=== PATIENT | male | born 1945 | race African-American/Black ===

== ENCOUNTER 2016-05-29 12:33 | Day surgery (SDC) | payer OTHER ==
[2016-05-21 08:43] VITALS: BMI 24.0
[~2016-05-29] VITALS: Ht 182.9 cm; Wt 81.8 kg
[~2016-05-29 12:33] MED LIST: ALLO100T PO; ASPI81TA28 PO; CGN1X PO; GLIP-199 PO; LACTATED RINGER'S 1000ML 1,000 ML IV SCH; LOSA50TA6 PO; METF-383 PO; MIRT15TA PO; PRVC/40 PO; TYLOTC500 PO; ZYP20 PO
[2016-05-29 12:57] VITALS: BP 184/96; PULSE 76; TEMP 36.4; O2SAT 96; Ht 182.9 cm; Wt 81.8 kg
[2016-05-29] MEDS ORDERED: MIDAZOLAM HCL 1 MG/ML 2ML VIAL ONE (12:58)
[2016-05-29] MEDS ORDERED: FENTANYL CITRATE INJ 50 MCG/1 ML 2 ML VIAL ONE ×2 (12:58→14:49)
--- NOTE | 2016-05-29 13:40 | Discharge Instructions ---
Discharge Instructions Visit Reason for Visit: Mediastinal Adenopathy Discharge Discharge Diagnosis / Problem: Mediastinal Adenopathy Discharge Goals Goal(s): Learn about illness Activity Recommendations Activity Limitations: resume your previous activity (in 24 hours) Anesthesia . Post Anesthesia Instructions: If you have had General Anesthesia or IV Sedation: * Do not drive today. * Resume driving when surgeon permits. * Do not make important decisions or sign legal documents today. * Call surgeon for: 1. Temperature elevations greater than 101 degrees F. 2. Uncontrollable pain. 3. Excessive bleeding. 4. Persistent nausea and vomiting. 5. Medication intolerance (nausea, vomiting or rash). * For nausea and vomiting use only clear liquids such as: tea, soda, bouillon until nausea subsides, then gradually increase diet as tolerated. * If you have any concerns or questions, call your surgeon's office. If physician is unavailable and it is an emergency, call 911 or go to the nearest emergency room. . Instructions / Follow-Up Instructions / Follow-Up 1. You will need a 1-2 week follow-up appointment with Dr. Long. His office will call correctional facility to arrange date and time of appointment. 2. Call physician if an excessive amount of swelling is noted near incision or if patient has the inability to swallow. Diet Recommendations Recommended Home Diet: resume previous diet Procedures Procedures Performed: Mediastinoscopy Pending Studies Studies pending at discharge: no Medical Emergencies . Who to Call and When: Medical Emergencies: If at any time you feel your situation is an emergency, please call 911 immediately. . Non-Emergent Contact Non-Emergency issues call your: Surgeon Call Non-Emergent contact if: you have a fever, your pain is not controlled, wound has increased drainage . . "Provider Documentation" section prepared by Simeon Kang.
--- NOTE | 2016-05-29 13:44 | History & Physical Bridge Note ---
H&P Re-Evaluation Bridge Note: I have examined the patient, reviewed the History & Physical and in the interval since the performance of the History & Physical I have noted the following changes of clinical significance: No changes noted
[2016-05-29] MEDS ORDERED: PROPOFOL IV EMULSION 10 MG/ML 20 ML VIAL IV ONE (14:49)
[2016-05-29] MEDS ORDERED: LIDOCAINE HCL 2% 2 ML VIAL (20MG/ML) ONE (14:49)
[2016-05-29] MEDS ORDERED: LARYING-O-JET KIT (LTA) EXT ONE ×2 (14:49)
[2016-05-29] MEDS ORDERED: CISATRACURIUM BESYLATE IV SOLN 2 MG/ML 10 ML VIAL ONE (14:50)
[2016-05-29] MEDS ORDERED: EpHEDrine SULFATE 50MG/5ML SYR ONE (14:50)
[2016-05-29] MEDS ORDERED: SUCCINYLCHOLINE CHLORIDE 20 MG/ML 10 ML VIAL IV ONE (14:50)
[2016-05-29] MEDS ORDERED: CLINDAMYCIN PHOS 150 MG/ML 2 ML VIAL ONE ×2 (14:52→15:14)
[2016-05-29] MEDS ORDERED: ESMOLOL HCL 10 MG/ML 10 ML VIAL ONE (15:02)
[2016-05-29] MEDS ORDERED: GLYCOPYRROLATE INJ 0.2 MG/ML VIAL ONE (15:16)
[2016-05-29] MEDS ORDERED: NEOSTIGMINE METHYLSULFATE 5 MG/5 ML SYR ONE (15:16)
[2016-05-29] MEDS ORDERED: TRAM-10 PO (15:30)
--- NOTE | 2016-05-29 16:27 | DIAGNOSTIC IMAGING REPORT ---
CHEST ONE VIEW PORTABLE CLINICAL HISTORY: s/p mediastinoscopy postoperative evaluation COMPARISON STUDY: 03/11/2016 FINDINGS: Lungs are clear. No evidence of pneumothorax. Diaphragms smooth. IMPRESSION: No acute process. No evidence pneumothorax. Electronically signed by: Rio Arevalo M.D. 05/29/2016 4:25 PM Dictated Date/Time: 05/29/2016 4:25 PM
--- NOTE | 2016-05-29 16:32 | OPERATIVE REPORT ---
DATE OF OPERATION: 05/29/2016 PREOPERATIVE DIAGNOSIS: Mediastinal adenopathy. POSTOPERATIVE DIAGNOSIS: Same. PROCEDURE: Video mediastinoscopy. SURGEON: Dr. Long. CONSOLIDATOR: DELBERT Maurer and Rio Alvares, [facility] practice resident. ANESTHESIA: General anesthesia endotracheal intubation. INDICATION FOR PROCEDURE AND FINDINGS: Adelso Becerril is a 70-year-old incarcerated male who was found back in February to have mediastinal adenopathy. He did not want anything done at that time. I saw him back in the office and after a long discussion he asked that we proceed with a video mediastinoscopy. We discussed endobronchial ultrasound, navigational bronchoscopy and mediastinoscopy. On 05/29/2016 patient underwent an uncomplicated video mediastinoscopy. 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 We got through this pretty easily. Going down the tracheal plane, had some very large nodes which were a bit different in color. They were a bit zyglo inspector than normal acanthotic nodes. I removed a level 2 and level 4 node. Some of this appeared to be almost necrotic. Frozen section just showed apparent benign lymph node. There were no granulomas, no evidence of malignancy. Flow cytometry of course is still pending. At this point, we elected to close. I did not biopsy anything on the left side. We had negligible amount of bleeding. The patient tolerated it well. DESCRIPTION OF PROCEDURE: The patient was brought to the operating room and laid in supine position. General anesthesia induced and endotracheal intubation was performed. The patient's neck was then extended and was prepped and draped in the usual sterile fashion. After appropriate timeout had been called and antibiotics had been given. I made a transverse incision in the area of his old tracheostomy site. Sharp and blunt dissection used to dissect down to the strap muscles and these were divided in the midline. There was some scar tissue inferior to this and I had to sharply take this down with the suction cautery with the video mediastinoscope. However, I was finally able to get this down and went below the thyroid isthmus and then got down to the pretracheal plane without difficulty. This dissected out very easily. We came upon some very large nodes at the right level 4, level 2 area and level 7 area node, however, I took off a very large portion of the right level 2, and level 4 nodes and sent them off. We had some bleeding controlled with cautery. I did not biopsy on the left side. These appeared to be simply benign reactive nodes according to Dr. Laguerre. There was no significant bleeding. The video mediastinoscope was slowly removed. A 3-0 Polysorb was used to close the strap muscles, 4-0 Monocryl was used to close the skin incision in a running subcuticular fashion. He tolerated it well. I attest to the content of the Intraoperative Record and any orders documented therein. Any exceptions are noted below. SHAYY
[2016-05-29] MEDS ORDERED: LABETALOL HCL IV 5 MG/ML 20ML ONE (16:33)
[2016-05-29] MEDS ORDERED: NURSING VERBAL MED ORDER ONE (16:45)
--- NOTE | 2016-05-29 16:56 | Anesthesiology Progress Note ---
Anesthesia Post Op Note Date & Time May 29, 2016 at 16:56 Vital Signs Pain Intensity: 0 Vital Signs Past 12 Hours Date Time Temp Pulse Resp B/P Pulse Ox O2 Delivery O2 Flow Rate FiO2 05/29/16 16:50 80 20 141/90 99 Nasal Cannula 3 05/29/16 16:45 81 20 138/92 99 Nasal Cannula 3 05/29/16 16:40 83 20 160/105 99 Nasal Cannula 3 05/29/16 16:30 36.1 99 20 173/118 99 Nasal Cannula 3 05/29/16 16:20 95 20 175/102 99 Nasal Cannula 3 05/29/16 16:10 92 18 152/82 99 Mask 10 05/29/16 16:00 92 18 144/81 98 Mask 10 05/29/16 15:52 36.0 104 18 141/97 98 Mask 10 05/29/16 12:57 36.4 76 20 184/96 96 Room Air Notes Mental Status: alert / awake / arousable, participated in evaluation Pt Amnestic to Procedure: Yes Nausea / Vomiting: adequately controlled Pain: adequately controlled Airway Patency, RR, SpO2: stable & adequate BP & HR: stable & adequate Hydration State: stable & adequate Anesthetic Complications: no major complications apparent
[2016-05-29 17:00] VITALS: BP 187/114; PULSE 80; TEMP 36.2; O2SAT 99
[2016-05-29] MEDS ORDERED: LABETALOL HCL IV 5 MG/ML 20ML IV PRN (17:00)
[2016-05-29] MEDS ORDERED: ATROPINE SULFATE 0.1 MG/ML 5ML SYR IV PRN (17:00)
[2016-05-29] MEDS ORDERED: NALOXONE HCL 0.4 MG/1 ML VIAL/CARP IV PRN (17:00)
[2016-05-29] MEDS ORDERED: ONDANSETRON INJ 2 MG/ML 2 ML VIAL IV PRN (17:00)
[2016-05-29] MEDS ORDERED: FLUMAZENIL 0.1 MG/1 ML 10 ML VIAL IV PRN (17:00)
[2016-05-29] MEDS ORDERED: HYDROmorphone INJ 1 MG/ML SYR IV PRN (17:00)
[2016-05-29] MEDS ORDERED: PROMETHAZINE HCL INJ 12.5 MG in SODIUM CHLORIDE 0.9% 50ML 50 ML IV PRN (17:00)
[2016-05-29] MEDS ORDERED: EpHEDrine SULFATE INJ 50 MG/ML AMP IV PRN (17:00)
[2016-05-29] MEDS ORDERED: OXYCODONE/ACETAMINOPHEN 5-325 TAB ONE (17:19)
[2016-05-29] MEDS ORDERED: HydrALAZINE HCL 20 MG/ML VIAL ONE (17:21)
[2016-05-29] MEDS ORDERED: HydrALAZINE HCL 20 MG/ML VIAL IV. STA ×2 (17:24→17:46)
[2016-05-29] MEDS ORDERED: HYDROmorphone INJ 2 MG/ML SYR/VIAL IV STA (17:24)
[2016-05-29] MEDS ORDERED: HYDROmorphone INJ 2 MG/ML SYR/VIAL ONE (17:26)
[2016-05-29 17:30] VITALS: BP 186/125; PULSE 89; TEMP 36.2; O2SAT 98
[2016-05-29] MEDS ORDERED: TRAMADOL HCL 50 MG TAB PO PRN (17:30)
[2016-05-29] MEDS ORDERED: MoRPHine SULFATE 2 MG/ML CARP IV PRN (17:30)
[2016-05-29 17:45] VITALS: BP_SYST 186; BP_SYST 193; BP_DIAS 125; BP_DIAS 127; O2SAT 99
[2016-05-29 18:00] VITALS: BP 157/91; PULSE 89; TEMP 36.2; O2SAT 99
[2016-05-29 18:30] VITALS: BP 115/75; PULSE 80; TEMP 36.8; O2SAT 96
== END 2016-05-29 18:35 | disposition home or self-care (01) ==
LOC: C.ACU 12:33
PROVIDERS: ATTEND Surgery
DX: R59.0 Localized enlarged lymph nodes (principal); F32.9 Major depressive disorder, single episode, unspecified; E11.9 Type 2 diabetes mellitus without complications; M10.9 Gout, unspecified; I10 Essential (primary) hypertension; Z82.49 Family history of ischemic heart disease and other diseases of the circulatory system; Z79.82 Long term (current) use of aspirin; Z79.899 Other long term (current) drug therapy